=== PATIENT | female | born 1935 | race Caucasian/White ===

== ENCOUNTER → 2018-01-10 | Outpatient (CLI) | payer MEDICARE, OTHER ==
[~2018-01-10] MED LIST: ACET-3017 PO; ALB0.5 IH; ALBU8.5H IH; AMOX-362 PO; APIX2.5T PO; ASPI-1471 PO; AZIT-1 PO; CEFU250T11 PO; CEPH-13 PO; CLON-298 PO; CYCL-277 PO; ERGO500037 PO; ESTR0.62 PO; ESTR1.2525 PO; FLE100 PO; FLEC50TA16 PO; FLU45SYR17 IM; FLU45SYR25 IM ONLY; FLU60SYR30 IM ONLY; FLUT1DIS27 IH; LEVO175T42 PO; LEVO750T44 PO; LOR5/325 PO; OXYC-865 PO; OXYGENHOME INH; PNEU0.5D3 IM; PRED-1 PO; PRED20TA6 PO; SERT-181 PO; TRAZ-156 PO; TRIA1CAP85 PO; [UNRECOGNIZED DRUG - CODE] PO; [UNRECOGNIZED DRUG - CODE] PO
--- NOTE | 2018-01-11 10:45 | RADIOLOGY IMAGING REPORT ---
FACILITY: [facility] - [place] PATIENT NAME: BISI DURAN : [id number] MR: [id number] V: [id number] EXAM DATE: [id number] ORDERING PHYSICIAN: MARGO SINGH TECHNOLOGIST: Jaja Barahona PROCEDURE:BILATERAL DIGITAL SCREENING MAMMOGRAM WITH CAD ASSISTED INTERPRETATION & 3D TOMOSYNTHESIS COMPARISON:Prior mammograms dated 08/30/13, 05/17/12 INDICATIONS:screening FINDINGS: Extremely heterogeneous dense fibroglandular tissue is seen throughout the breasts. Posterior to the mid nipple line on the left CC view as identified on tomographic slice 54 is an area of architectural distortion. This is seen in the left MLO view on tomographic slice 44. Spot compression views recommended for further evaluation. DIAGNOSTIC CATEGORY 0--INCOMPLETE: NEED ADDITIONAL IMAGING EVALUATION. RECOMMENDATIONS: ADDITIONAL MAMMOGRAPHIC VIEWS REQUIRED: LEFT BREAST. IMPRESSION: BIRADS 0: Incomplete, need additional imaging evaluation Additional views of the left breast recommended as described. Dictated by: Eri Aguilar M.D. on 01/10/2018 at 16:16 Transcribed by: EVLIRA on 01/11/2018 at 7:24 Approved by: Eri Aguilar M.D. on 01/11/2018 at 10:44 [facility]
== END ==
LOC: MAMO 01:16
PROVIDERS: ATTEND Internal Medicine
DX: Z12.31 Encounter for screening mammogram for malignant neoplasm of breast (principal); R92.8 Other abnormal and inconclusive findings on diagnostic imaging of breast
CPT/HCPCS: 77063; 77067

== ENCOUNTER → 2018-02-23 | Outpatient (CLI) | payer MEDICARE, OTHER ==
--- NOTE | 2018-02-24 08:41 | RADIOLOGY IMAGING REPORT ---
FACILITY: [facility] - [place] PATIENT NAME: BISI DURAN : [id number] MR: [id number] V: [id number] EXAM DATE: [id number] ORDERING PHYSICIAN: MARGO SINGH TECHNOLOGIST: Sara Black PROCEDURE:US LEFT BREAST COMPLETE COMPARISON:None. INDICATIONS:further eval FINDINGS: In the approximate 11 o'clock position of the Left breast there are 2 adjacent hypoechoic irregular shadowing masses the largest measuring approximately 3 x 1.1 x 1.9cm. The small adjacent nodule measures 8 x 4 x 9mm. Both of these nodules appear worrisome. In the approximate 3 o'clock position of the Left breast there is an irregular hypoechoic nodule measuring 1.1 x 0.6 x 1.2cm. Ultrasound guided core biopsy of these 3 nodules is recommend for further evaluation. DIAGNOSTIC CATEGORY 5--HIGHLY SUGGESTIVE OF MALIGNANCY. RECOMMENDATIONS: ULTRASOUND-GUIDED CORE BIOPSY: LEFT BREAST. IMPRESSION: BIRADS 5: Highly suspicious of malignancy Ultrasound guided core biopsy of the 2 irregular hypoechoic lesions in the 11 o'clock position Left breast and the 1 irregular hypoechoic lesion in the 3 o'clock position Left breast recommend for further evaluation. Dictated by: Eri Aguilar M.D. on 02/23/2018 at 17:01 Transcribed by: RICCARDO on 02/24/2018 at 8:28 Approved by: Eri Aguilar M.D. on 02/24/2018 at 8:40 [facility]
--- NOTE | 2018-02-24 08:41 | RADIOLOGY IMAGING REPORT ---
FACILITY: [facility] PATIENT NAME: BISI DURAN : [id number] MR: [id number] V: [id number] EXAM DATE: ORDERING PHYSICIAN: MARGO SINGH TECHNOLOGIST: Jaja Barahona PROCEDURE:LEFT DIGITAL DIAGNOSTIC MAMMOGRAM WITH CAD ASSISTED INTERPRETATION & 3D TOMOSYNTHESIS COMPARISON:Prior mammograms 01/10/18, 08/30/13, 05/17/12. INDICATIONS:abnormal mammo FINDINGS: Patient returns for a medial lateral view of Left breast and Spot compression views in the Left CC and MLO projection. There is an area of spiculation and architectural distortion seen in the upper outer quadrant of the Left breast. Irregular hypoechoic masses were identified in the 11 and 3 o'clock positions of the Left breast on Today's Left breast Ultrasound. Ultrasound guided core biopsy of these masses recommended as detailed in Today's Left breast Ultrasound report. DIAGNOSTIC CATEGORY 5--HIGHLY SUGGESTIVE OF MALIGNANCY. RECOMMENDATIONS: ULTRASOUND-GUIDED CORE BIOPSY: LEFT BREAST. IMPRESSION: BIRADS 5: Highly suspicious for malignancy. Ultrasound guided core biopsy recommended for the 2 irregular masses in the 11 o'clock position of the Left breast and the irregular 3 o'clock mass as described in Today's Left breast Ultrasound report. Dictated by: Eri Aguilar M.D. on 02/23/2018 at 17:04 Transcribed by: RICCARDO on 02/24/2018 at 8:18 Approved by: Eri Aguilar M.D. on 02/24/2018 at 8:40 [facility]
== END ==
LOC: MAMO 01:01
PROVIDERS: ATTEND Internal Medicine
DX: N63.21 Unspecified lump in the left breast, upper outer quadrant (principal); N63.22 Unspecified lump in the left breast, upper inner quadrant
CPT/HCPCS: 77065

== ENCOUNTER 2018-05-09 12:24 | Emergency (ER) | payer MEDICARE, OTHER ==
--- NOTE | 2018-05-09 12:27 | ER Report ---
History and Physical Time Seen By MD: 12:27 HPI/ROS CHIEF COMPLAINT: Nosebleed HISTORY OF PRESENT ILLNESS: Patient is an 82-year-old female who presents to the emergency department for epistaxis which seems to be coming from the right naris began around 8:30 this morning. She denies any trauma to the nose. She is on Eliquis for treatment of atrial fibrillation. She does not feel as if at this time she is swallowing blood. She has not had a significant nosebleed in the past that she can recall. She denies any other symptoms at this time. She is having no difficulty breathing. REVIEW OF SYSTEMS: Constitutional: No fever, no chills. Eyes: No discharge. ENT: Nosebleed Cardiovascular: No chest pain, no palpitations. Respiratory: No cough, no shortness of breath. Gastrointestinal: No abdominal pain, no vomiting. Genitourinary: No hematuria. Musculoskeletal: No back pain. Skin: No rashes. Neurological: No headache. Allergies: Coded Allergies: No Known Drug Allergies (Unverified , 02/10/17) Home Meds Active Scripts Sertraline Hcl (SERTRALINE HCL) 100 Mg Tablet, 1.5 TAB PO QDAY, #135 TAB 3 Refills Prov:MARGO SINGH MD 03/27/18 Apixaban (ELIQUIS) 2.5 Mg Tablet, 1 TAB PO BID, #60 TAB 11 Refills Prov:MARGO SINGH MD 10/05/17 Levothyroxine Sodium (LEVOTHYROXINE SODIUM) 175 Mcg Tablet, 1 TAB PO QDAY, #90 TAB 3 Refills Prov:MARGO SINGH MD 10/03/17 Trazodone Hcl (TRAZODONE HCL) 50 Mg Tablet, 0.5 TAB PO HS, #30 TAB 1 Refill Prov:MARGO SINGH MD 10/03/17 Clonazepam (CLONAZEPAM) 0.5 Mg Tablet, 1 TAB PO HS Y for anxiety, #30 TAB 1 Refill Prov:MARGO SINGH MD 08/23/17 Fluticasone/Salmeterol (ADVAIR 100-50 DISKUS) 1 Each Disk.w.dev, 1 TAB IH BID, # 1 INHALER 3 Refills Prov:MARGO SINGH MD 08/16/17 Albuterol Sulfate 90 Mcg/Act (PROAIR HFA 90 MCG/ACT) 8.5 Gm Hfa.aer.ad, 2 PUFF IH QID Y for PRN, #1 INHALER 0 Refills Prov:JAYDA JOSHUA APRN INTERIOR PAINTER-C 08/10/17 Ergocalciferol (Vitamin D2) (VITAMIN D2) 50,000 Unit Capsule, 1 CAP PO QWEEK, # 20 CAPSULE 2 Refills Prov:MARGO SINGH MD 06/03/17 Flecainide Acetate (FLECAINIDE ACETATE) 100 Mg Tab, 1 TAB PO BID, #180 TAB 4 Refills Prov:MARGO SINGH MD 04/26/17 Triamterene/Hydrochlorothiazid (TRIAMTERENE-HCTZ 37.5-25 MG CP) 1 Each Capsule, 1 CAP PO DAILY, #90 CAPSULE Prov:MARGO SINGH MD 03/17/17 Digoxin (Digox) 250 Mcg Tablet, 1 TAB PO DAILY, #90 TAB 3 Refills Prov:MARGO SINGH MD 12/21/16 Reported Medications Oxygen (OXYGEN) Inha, 2 L INH cont, L 04/11/17 Past Medical/Surgical History Past medical history for abdominal aortic aneurysm, atrial fibrillation on Eliquis, hyperlipidemia, history of asthma COPD and pulmonary hypertension, history of GERD, history of hypothyroidism, history of sinus surgery in 1992 with tonsillectomy, history of cholecystectomy and hysterectomy Hx Smoking: No Smoking Status: Never Smoker Exposure to Second Hand Smoke?: Yes Hx Substance Use Disorder: No Hx Alcohol Use: No Constitutional Vital Sign - Last 24 Hours 05/09/18 05/09/18 05/09/18 05/09/18 12:29 12:30 12:31 12:34 Temp 98.0 Pulse ??? 59 ??? Resp 18 B/P (MAP) 118/87 (97) 118/87 Pulse Ox 89 88 O2 Delivery Room Air 05/09/18 05/09/18 05/09/18 05/09/18 12:39 12:44 12:49 12:54 Pulse 56 54 54 54 B/P (MAP) 144/59 (87) Pulse Ox 85 95 95 96 05/09/18 05/09/18 05/09/18 05/09/18 12:59 13:00 13:04 13:09 Pulse 53 51 52 B/P (MAP) 139/65 (89) Pulse Ox 95 95 95 05/09/18 13:14 Pulse ??? Pulse Ox 82 Physical Exam General Appearance: Alert, no distress. Eyes: [Pupils equal and round no pallor or injection.] ENT, Mouth: Ears: Tympanic membranes are normal. Nose: She has slow ooze of blood from the right naris. Mouth: Mucous membranes are moist. Throat: No erythema or exudates there is no tonsillar hypertrophy and uvula is midline. Musculoskeletal: Neck is supple non tender, no adenopathy. Skin: Warm and dry, no rashes. Medical Decision Making Data Points Result Diagram: 05/09/18 1320 05/09/18 1320 Laboratory Hematology Test 05/09/18 13:20 Red Blood Count 4.42 M/uL (4.17-5.56) Mean Corpuscular Volume 85.4 fL (80.0-96.0) Mean Corpuscular Hemoglobin 29.2 pg (26.0-33.0) Mean Corpuscular Hemoglobin Concent 34.2 g/dL (32.0-36.0) Red Cell Distribution Width 14.7 % (11.5-14.5) Mean Platelet Volume 7.3 fL (7.2-11.1) Neutrophils (%) (Auto) 70.8 % (39.4-72.5) Lymphocytes (%) (Auto) 21.8 % (17.6-49.6) Monocytes (%) (Auto) 5.0 % (4.1-12.4) Eosinophils (%) (Auto) 1.6 % (0.4-6.7) Basophils (%) (Auto) 0.8 % (0.3-1.4) Nucleated RBC Relative Count (auto) 0.0 /100WBC Neutrophils # (Auto) 4.7 K/uL (2.0-7.4) Lymphocytes # (Auto) 1.4 K/uL (1.3-3.6) Monocytes # (Auto) 0.3 K/uL (0.3-1.0) Eosinophils # (Auto) 0.1 K/uL (0.0-0.5) Basophils # (Auto) 0.0 K/uL (0.0-0.1) Nucleated RBC Absolute Count (auto) 0.00 K/uL Prothrombin Time 13.8 seconds (12.0-14.4) Prothromb Time International Ratio 1.05 Activated Partial Thromboplast Time 29 seconds (23-35) Sodium Level 136 mmol/L (137-145) Potassium Level 3.7 mmol/L (3.5-5.0) Chloride Level 96 mmol/L (98-107) Carbon Dioxide Level 30 mmol/L (22-31) Blood Urea Nitrogen 12 mg/dl (7-18) Creatinine 0.80 mg/dl (0.52-1.04) Glomerular Filtration Rate Calc > 60.0 Random Glucose 105 mg/dl (75-110) Calcium Level 8.7 mg/dl (8.4-10.2) Total Bilirubin 1.0 mg/dl (0.2-1.3) Aspartate Amino Transf (AST/SGOT) 26 U/L (0-35) Alanine Aminotransferase (ALT/SGPT) 24 U/L (0-56) Alkaline Phosphatase 71 U/L (0-126) Total Protein 6.7 g/dl (6.3-8.2) Albumin 3.7 g/dl (3.5-5.0) Chemistry Test 05/09/18 13:20 White Blood Count 6.6 k/uL (4.5-11.0) Red Blood Count 4.42 M/uL (4.17-5.56) Hemoglobin 12.9 g/dL (12.0-16.0) Hematocrit 37.7 % (34.0-47.0) Mean Corpuscular Volume 85.4 fL (80.0-96.0) Mean Corpuscular Hemoglobin 29.2 pg (26.0-33.0) Mean Corpuscular Hemoglobin Concent 34.2 g/dL (32.0-36.0) Red Cell Distribution Width 14.7 % (11.5-14.5) Platelet Count 179 K/uL (150-450) Mean Platelet Volume 7.3 fL (7.2-11.1) Neutrophils (%) (Auto) 70.8 % (39.4-72.5) Lymphocytes (%) (Auto) 21.8 % (17.6-49.6) Monocytes (%) (Auto) 5.0 % (4.1-12.4) Eosinophils (%) (Auto) 1.6 % (0.4-6.7) Basophils (%) (Auto) 0.8 % (0.3-1.4) Nucleated RBC Relative Count (auto) 0.0 /100WBC Neutrophils # (Auto) 4.7 K/uL (2.0-7.4) Lymphocytes # (Auto) 1.4 K/uL (1.3-3.6) Monocytes # (Auto) 0.3 K/uL (0.3-1.0) Eosinophils # (Auto) 0.1 K/uL (0.0-0.5) Basophils # (Auto) 0.0 K/uL (0.0-0.1) Nucleated RBC Absolute Count (auto) 0.00 K/uL Prothrombin Time 13.8 seconds (12.0-14.4) Prothromb Time International Ratio 1.05 Activated Partial Thromboplast Time 29 seconds (23-35) Glomerular Filtration Rate Calc > 60.0 Calcium Level 8.7 mg/dl (8.4-10.2) Total Bilirubin 1.0 mg/dl (0.2-1.3) Aspartate Amino Transf (AST/SGOT) 26 U/L (0-35) Alanine Aminotransferase (ALT/SGPT) 24 U/L (0-56) Alkaline Phosphatase 71 U/L (0-126) Total Protein 6.7 g/dl (6.3-8.2) Albumin 3.7 g/dl (3.5-5.0) Coagulation Test 05/09/18 13:20 Prothrombin Time 13.8 seconds Prothromb Time International Ratio 1.05 Activated Partial Thromboplast Time 29 seconds ED Course/Re-evaluation ED Course 05/09/2018 12:39:04 pm had the patient blow her nose subsequently instilled Yakov -Synephrine nasal spray to both nostrils. We then struck a Yakov-Synephrine- soaked pledget into the right naris. Patient is holding direct pressure at this time. Re-evaluation Patient observed in the emergency department for approximate one hour status post packing no rebleeding. We'll discharge home Decision to Disposition Date: May 09, 2018 Decision to Disposition Time: 13:39 Depart Departure Latest Vital Signs Vital Signs Date Time Temp Pulse Resp B/P (MAP) Pulse Ox O2 Delivery O2 Flow Rate FiO2 05/09/18 13:14 ??? 82 05/09/18 13:00 139/65 (89) 05/09/18 12:31 98.0 18 Room Air Impression: Primary Impression: Nosebleed Condition: Improved Disposition: HOME OR SELF-CARE Referrals: MARGO SINGH MD (PCP) 2 Days if symptoms persist Departure Forms: ER Transition Record, Medications Reconciliation, Patient Portal Information Patient Instructions: Nosebleed (ED) RENETTA ROTHMAN MD May 09, 2018 12:27
[2018-05-09] MEDS ORDERED: ENT KIT ONE (12:34)
[2018-05-09 13:30] VITALS: BP 131/58
[2018-05-09 13:32] LABS: PLATELET COUNT, AUTOMATED 179 K/uL (150-450)
[2018-05-09 13:38] LABS: INR 1.05
[2018-05-09] MEDS ORDERED: PHENYLEPHRINE 0.5% 15 ML BTL ONE (13:50)
== END 2018-05-09 13:45 | disposition home or self-care (01) ==
LOC: ER 12:32
DX: R04.0 Epistaxis (principal); Z79.01 Long term (current) use of anticoagulants
CPT/HCPCS: 36415; 82040; 82247; 82310; 82374; 82435; 82565; 82947; 84075; 84132; 84155; 84295; 84450; 84460; 84520; 85025; 85610; 85730; 99282

== ENCOUNTER 2018-07-10 20:53 | Emergency (ER) | payer MEDICARE, OTHER ==
[~2018-07-10 20:53] MED LIST changes: -CLON-298 PO; +CLON-331 PO; -TRAZ-156 PO; +TRAZ50TA34 PO
--- NOTE | 2018-07-10 21:30 | ER Report ---
History and Physical Time Seen By MD: 21:30 Hx. of Stated Complaint: PT HAS HX OF PNEUMONIA AND IS WORRIED ABOUT HAVING IT AGAIN. HPI/ROS CHIEF COMPLAINT: trouble breathing and cough HISTORY OF PRESENT ILLNESS: This is an 83 year old female. She has had a cough for a few days and is coughing up some increased sputum. She is having some tightness in the chest as well. Having intermittent fevers/chills with this. She has COPD and wears 2 liters of oxygen, and felt like this might not be helping as much the last few days. Denies rashes or skin changes. Is worried that she might have pneumonia as it feels like when she has had this in the past. Allergies: Coded Allergies: No Known Drug Allergies (Unverified , 07/10/18) Home Meds Active Scripts Guaifenesin/Codeine (GUAIFENESIN-CODEINE SYRUP) 5 Ml Syrp, 5 ML PO Q6H PRN for COUGH, #120 ML 0 Refills Prov:ENEDINA HILL MD 07/10/18 Azithromycin (ZITHROMAX) 250 Mg Tablet, 2 TAB PO ONCE, #6 TAB 0 Refills Prov:ENEDINA HILL MD 07/10/18 Prednisone (PREDNISONE) 20 Mg Tablet, 40 MG PO QDAY, #10 TAB 0 Refills Prov:ENEDINA HILL MD 07/10/18 Sertraline Hcl (SERTRALINE HCL) 100 Mg Tablet, 1.5 TAB PO QDAY, #135 TAB 3 Refills Prov:MARGO SINGH MD 03/27/18 Apixaban (ELIQUIS) 2.5 Mg Tablet, 1 TAB PO BID, #60 TAB 11 Refills Prov:MARGO SINGH MD 10/05/17 Levothyroxine Sodium (LEVOTHYROXINE SODIUM) 175 Mcg Tablet, 1 TAB PO QDAY, #90 TAB 3 Refills Prov:MARGO SINGH MD 10/03/17 Trazodone Hcl (TRAZODONE HCL) 50 Mg Tablet, 0.5 TAB PO HS, #30 TAB 1 Refill Prov:MARGO SINGH MD 10/03/17 Clonazepam (CLONAZEPAM) 0.5 Mg Tablet, 1 TAB PO HS PRN for anxiety, #30 TAB 1 Re fill Prov:MARGO SINGH MD 08/23/17 Fluticasone/Salmeterol (ADVAIR 100-50 DISKUS) 1 Each Disk.w.dev, 1 TAB IH BID, #1 INHALER 3 Refills Prov:MARGO SINGH MD 08/16/17 Albuterol Sulfate 90 Mcg/Act (PROAIR HFA 90 MCG/ACT) 8.5 Gm Hfa.aer.ad, 2 PUFF IH QID PRN for PRN, #1 INHALER 0 Refills Prov:JAYDA JOSHUA APRN [employer]T [employer]ER-C 08/10/17 Ergocalciferol (Vitamin D2) (VITAMIN D2) 50,000 Unit Capsule, 1 CAP PO QWEEK, #20 CAPSULE 2 Refills Prov:MARGO SINGH MD 06/03/17 Flecainide Acetate (FLECAINIDE ACETATE) 100 Mg Tab, 1 TAB PO BID, #180 TAB 4 Refills Prov:MARGO SINGH MD 04/26/17 Triamterene/Hydrochlorothiazid (TRIAMTERENE-HCTZ 37.5-25 MG CP) 1 Each Capsule, 1 CAP PO DAILY, #90 CAPSULE Prov:MARGO SINGH MD 03/17/17 Digoxin (Digox) 250 Mcg Tablet, 1 TAB PO DAILY, #90 TAB 3 Refills Prov:MARGO SINGH MD 12/21/16 Reported Medications Oxygen (OXYGEN) Inha, 2 L INH cont, L 04/11/17 Reviewed Nurses Notes: Yes Hx Smoking: No Smoking Status: Never Smoker Exposure to Second Hand Smoke?: Yes Hx Substance Use Disorder: No Hx Alcohol Use: No Constitutional Vital Sign - Last 24 Hours 07/10/18 07/10/18 07/10/18 07/10/18 21:02 21:20 21:23 21:30 Temp 100.1 Pulse 65 63 B/P (MAP) 137/74 160/75 (103) 166/77 (106) Pulse Ox 85 95 O2 Delivery Room Air 07/10/18 07/10/18 07/10/18 07/10/18 21:38 21:53 21:57 21:58 Pulse 64 64 67 Pulse Ox 95 96 95 O2 Flow Rate 4.0 07/10/18 07/10/18 07/10/18 07/10/18 22:00 22:28 22:30 22:43 Pulse 64 64 B/P (MAP) 172/86 (114) 174/82 (112) Pulse Ox 95 95 07/10/18 07/10/18 07/10/18 07/10/18 22:48 23:00 23:03 23:18 Pulse 59 60 59 B/P (MAP) 177/77 (110) Pulse Ox 95 96 97 07/10/18 07/10/18 23:30 23:33 Pulse 59 B/P (MAP) 168/67 (100) Pulse Ox 96 Physical Exam General Appearance: The patient is alert. No acute distress. Non-toxic in appearance. Eyes: Pupils are equal, round. No pallor, injection or icterus. ENT: Mucous membranes are moist. Normal oral mucosa. Posterior oropharynx is normal. Neck: Supple and non tender. Respiratory: Lungs have rhonchi and wheezing which is mild, but no rhonchi. Cardiovascular: Regular rate and rhythm. No murmurs, gallops or rubs. Normal capillary refill. Gastrointestinal: Abdomen is soft and non tender. Nondistended. Normal active bowel sounds. Neurological: Alert and oriented x3. Skin: Warm and dry. No rashes. Musculoskeletal: No tenderness in palpation of the cervical, thoracic and lumbar spine. DIFFERENTIAL DIAGNOSIS: After history and physical exam, differential diagnosis was considered for ED shortness breath differential Medical Decision Making Data Points Result Diagram: 07/10/18220407/10/182204 Laboratory Hematology Test 07/10/18 22:05 Red Blood Count 4.81 M/uL (4.17-5.56) Mean Corpuscular Volume 85.6 fL (80.0-96.0) Mean Corpuscular Hemoglobin 29.3 pg (26.0-33.0) Mean Corpuscular Hemoglobin Concent 34.3 g/dL (32.0-36.0) Red Cell Distribution Width 15.5 % (11.5-14.5) Mean Platelet Volume 7.5 fL (7.2-11.1) Neutrophils (%) (Auto) 82.3 % (39.4-72.5) Lymphocytes (%) (Auto) 11.7 % (17.6-49.6) Monocytes (%) (Auto) 4.3 % (4.1-12.4) Eosinophils (%) (Auto) 1.1 % (0.4-6.7) Basophils (%) (Auto) 0.6 % (0.3-1.4) Nucleated RBC Relative Count (auto) 0.0 /100WBC Neutrophils # (Auto) 6.8 K/uL (2.0-7.4) Lymphocytes # (Auto) 1.0 K/uL (1.3-3.6) Monocytes # (Auto) 0.4 K/uL (0.3-1.0) Eosinophils # (Auto) 0.1 K/uL (0.0-0.5) Basophils # (Auto) 0.1 K/uL (0.0-0.1) Nucleated RBC Absolute Count (auto) 0.00 K/uL Sodium Level 136 mmol/L (137-145) Potassium Level 3.7 mmol/L (3.5-5.0) Chloride Level 96 mmol/L (98-107) Carbon Dioxide Level 31 mmol/L (22-31) Blood Urea Nitrogen 14 mg/dl (7-18) Creatinine 1.00 mg/dl (0.52-1.04) Glomerular Filtration Rate Calc 52.8 Random Glucose 138 mg/dl (75-110) Calcium Level 9.2 mg/dl (8.4-10.2) Total Bilirubin 1.4 mg/dl (0.2-1.3) Aspartate Amino Transf (AST/SGOT) 26 U/L (0-35) Alanine Aminotransferase (ALT/SGPT) 27 U/L (0-56) Alkaline Phosphatase 53 U/L (0-126) Total Protein 7.7 g/dl (6.3-8.2) Albumin 4.5 g/dl (3.5-5.0) Chemistry Test 07/10/18 22:05 White Blood Count 8.3 k/uL (4.5-11.0) Red Blood Count 4.81 M/uL (4.17-5.56) Hemoglobin 14.1 g/dL (12.0-16.0) Hematocrit 41.2 % (34.0-47.0) Mean Corpuscular Volume 85.6 fL (80.0-96.0) Mean Corpuscular Hemoglobin 29.3 pg (26.0-33.0) Mean Corpuscular Hemoglobin Concent 34.3 g/dL (32.0-36.0) Red Cell Distribution Width 15.5 % (11.5-14.5) Platelet Count 190 K/uL (150-450) Mean Platelet Volume 7.5 fL (7.2-11.1) Neutrophils (%) (Auto) 82.3 % (39.4-72.5) Lymphocytes (%) (Auto) 11.7 % (17.6-49.6) Monocytes (%) (Auto) 4.3 % (4.1-12.4) Eosinophils (%) (Auto) 1.1 % (0.4-6.7) Basophils (%) (Auto) 0.6 % (0.3-1.4) Nucleated RBC Relative Count (auto) 0.0 /100WBC Neutrophils # (Auto) 6.8 K/uL (2.0-7.4) Lymphocytes # (Auto) 1.0 K/uL (1.3-3.6) Monocytes # (Auto) 0.4 K/uL (0.3-1.0) Eosinophils # (Auto) 0.1 K/uL (0.0-0.5) Basophils # (Auto) 0.1 K/uL (0.0-0.1) Nucleated RBC Absolute Count (auto) 0.00 K/uL Glomerular Filtration Rate Calc 52.8 Calcium Level 9.2 mg/dl (8.4-10.2) Total Bilirubin 1.4 mg/dl (0.2-1.3) Aspartate Amino Transf (AST/SGOT) 26 U/L (0-35) Alanine Aminotransferase (ALT/SGPT) 27 U/L (0-56) Alkaline Phosphatase 53 U/L (0-126) Total Protein 7.7 g/dl (6.3-8.2) Albumin 4.5 g/dl (3.5-5.0) EKG/Imaging Imaging 2 VIEWS CHEST INDICATION: Cough. Fever. COMPARISON: 05/18/2017 FINDINGS: The lungs are clear. No effusion or pneumothorax is seen. The heart size is mildly enlarged. There are prominent central pulmonary arteries and this appearance is stable. Degenerative changes involve the thoracic spine. IMPRESSION: 1. No radiographic evidence of active disease. 2. Mild cardiac enlargement. Report Dictated By: Eduard Dominguez at 07/10/2018 10:45 PM ED Course/Re-evaluation Clinical Indication for ER IV: IV Access ED Course COPD with bronchitis, increased mucus production. Prednisone, azithromycin, and cough medicine Decision to Disposition Date: Jul 10, 2018 Decision to Disposition Time: 23:39 Depart Departure Latest Vital Signs Vital Signs Date Time Temp Pulse Resp B/P (MAP) Pulse Ox O2 Delivery O2 Flow Rate FiO2 07/10/18 23:33 59 96 07/10/18 23:30 168/67 (100) 07/10/18 21:57 4.0 07/10/18 21:02 100.1 Room Air Impression: Primary Impression: Acute bronchitis Additional Impression: COPD (chronic obstructive pulmonary disease) Condition: Improved Disposition: HOME OR SELF-CARE Referrals: MARGO SINGH MD (PCP) New Scripts Guaifenesin/Codeine (GUAIFENESIN-CODEINE SYRUP) 5 Ml Syrp 5 ML PO Q6H PRN for COUGH, #120 ML 0 Refills Prov: ENEDINA HILL MD 07/10/18 Azithromycin (ZITHROMAX) 250 Mg Tablet 2 TAB PO ONCE, #6 TAB 0 Refills Prov: ENEDINA HILL MD 07/10/18 Prednisone (PREDNISONE) 20 Mg Tablet 40 MG PO QDAY, #10 TAB 0 Refills Prov: ENEDINA HILL MD 07/10/18 Patient Instructions: Acute Bronchitis (ED) Additional Instructions: Take Azithromycin 250mg, take 2 tablets once a day for 3 days. Take Prednisone 20mg, 2 tablets once a day for 5 days. Take Guaifenesin with codeine, 1 teaspoon every 4 hours as needed for severe cough. Problem Qualifiers Primary Impression: Acute bronchitis Bronchitis organism: unspecified organism Qualified Codes: J20.9 - Acute bronchitis, unspecified Additional Impression: COPD (chronic obstructive pulmonary disease) COPD type: COPD with acute lower respiratory infection Qualified Codes: J44.0 - Chronic obstructive pulmonary disease with acute lower respiratory infection ENEDINA HILL MD Jul 10, 2018 21:30
[2018-07-10 22:15] LABS: PLATELET COUNT, AUTOMATED 190 K/uL (150-450)
--- NOTE | 2018-07-10 22:51 | RADIOLOGY IMAGING REPORT ---
FACILITY: [facility] - [place] PATIENT NAME: Alise Scott : 1935 MR: [id number] V: [id number] EXAM DATE: ORDERING PHYSICIAN: ENEDINA HILL TECHNOLOGIST: Location: [facility] - [place] Patient: Alise Scott : 1935 Visit/Account:[id number] Date of Sevice: 07/10/2018 2 VIEWS CHEST INDICATION: Cough. Fever. COMPARISON: 05/18/2017 FINDINGS: The lungs are clear. No effusion or pneumothorax is seen. The heart size is mildly enlarged. There ar e prominent central pulmonary arteries and this appearance is stable. Degenerative changes involve th e thoracic spine. IMPRESSION: 1. No radiographic evidence of active disease. 2. Mild cardiac enlargement. Report Dictated By: Eduard Dominguez at 07/10/2018 10:45 PM Report E-Signed By: Eduard Dominguez at 07/10/2018 10:48 PM WSN:[id number]
[2018-07-10 23:30] VITALS: BP 168/67
[2018-07-10] MEDS ORDERED: ROBC PO (23:40)
[2018-07-10] MEDS ORDERED: AZIT-1 PO (23:40)
[2018-07-10] MEDS ORDERED: PRED20TA6 PO (23:40)
[2018-07-10] MEDS ORDERED: guaiFENesin/CODEINE 5 ML UDBTL PO ONE (23:40)
[2018-07-10] MEDS ORDERED: AZITHROMYCIN 250 MG TAB PO ONE (23:40)
[2018-07-10] MEDS ORDERED: predniSONE 20 MG TAB PO ONE (23:45)
== END 2018-07-11 00:20 | disposition home or self-care (01) ==
LOC: ER 21:31
DX: J20.9 Acute bronchitis, unspecified (principal); J44.0 Chronic obstructive pulmonary disease with (acute) lower respiratory infection
CPT/HCPCS: 36415; 71046; 85025; 87040; 99283; A9270; J7512; Q0144; 82040; 82247; 82310; 82374; 82435; 82565; 82947; 84075; 84132; 84155; 84295; 84450; 84460; 84520

== ENCOUNTER → 2019-06-04 | Outpatient (CLI) | payer MEDICARE, OTHER ==
[~2019-06-04] MED LIST changes: +ROBC PO; -TRAZ50TA34 PO; +TRAZ50TA52 PO
[2019-06-04 15:30] LABS: PLATELET COUNT, AUTOMATED 203 K/uL (150-450)
== END ==
LOC: LAB 15:05
PROVIDERS: ATTEND Internal Medicine
DX: N63.20 Unspecified lump in the left breast, unspecified quadrant (principal); J45.909 Unspecified asthma, uncomplicated; I48.91 Unspecified atrial fibrillation; E03.9 Hypothyroidism, unspecified; I10 Essential (primary) hypertension; E55.9 Vitamin D deficiency, unspecified
CPT/HCPCS: 36415; 80162; 82040; 82247; 82306; 82310; 82374; 82435; 82565; 82607; 82746; 82947; 84075; 84132; 84155; 84295; 84450; 84460; 84520; 85025

== ENCOUNTER → 2019-06-05 | Outpatient (CLI) | payer MEDICARE, OTHER ==
--- NOTE | 2019-06-06 09:53 | RADIOLOGY IMAGING REPORT ---
FACILITY: [facility] [place] PATIENT NAME: BISI DURAN : [id number] MR: [id number] V: [id number] EXAM DATE: [id number] ORDERING PHYSICIAN: MELLISA MENDOZA TECHNOLOGIST: Patricia Stone PROCEDURE:BILATERAL DIAGNOSTIC DIGITAL MAMMOGRAM WITH CAD ASSISTED INTERPRETATION & 3D TOMOSYNTHESIS LEFT BREAST ULTRASOUND. REASON FOR STUDY: Previous history of architectural distortion and mass in the Left breast with biopsy recommended. The patient did not have biopsy at that time. Follow-up. COMPARISON STUDIES: 02/23/18 with priors back to 08/30/13. MAMMOGRAM VIEWS OBTAINED: 2D & 3D full field CC & MLO projections. BREAST DENSITY: The breast parenchyma is heterogeneously dense. MAMMOGRAM FINDINGS: There is a persistent area of architectural distortion in the 12 o'clock position of the Left breast without substantial progression from previous. There is no defined soft tissue mass associated with this. No suspect calcifications. No discreet finding of concern elsewhere in the Left breast or on the Right. There are benign appearing calcifications. No visible axillary adenopathy. ULTRASOUND AREA SCANNED: Left breast. ULTRASOUND FINDINGS: The Ultrasound re-demonstrates a lobulated just under 2cm hypoechoic mass in the upper inner aspect of the breast in the 10-11 o'clock area about 2cm from the nipple which I think correlates with the dominant mass shown previously and has not grown substantially. I'm not convinced that this correlates precisely with the location of the architectural distortion. The patient does have some firm appearing tissue more in the 12-1 o'clock area which I think probably correlates with the architectural distortion however sonography does not really show a discreet concerning mass here. There are some other scattered small hypoechoic islands or cysts elsewhere in the breast including a small ovoid focus in the 3 o'clock position of the breast. No other dominant concerning structure. No axillary adenopathy demonstrated sonographically. I discussed exam findings with the patient at the completion of my scanning. Biopsy of the architectural distortion is warranted. Also, the solid mass in the upper inner aspect warrants assessment. Sense these are not clearly the same site, this maybe a 2 side biopsy. I would recommend Stereotacticly guided biopsy with Tomosynthesis for the architectural distortion in the superior aspect of the breast. After that, limited Ultrasound could be done to determine if the biopsy changes and clip correlate with the sonographic mass. If not, as I would expect, Ultrasound guided biopsy of the upper inner quadrant mass could then be done. The patient is interested in having these finding accessed in the [facility] area, and I did discuss with her that the Tomography with Tomosynthesis had to [facility] in [place] would be best for the Stereotactic biopsy rather than the unit here at [facility] [place]. I have also called the nurse line for Dr. Mendoza and left a message regarding the biopsy recommendation at about 3:20pm. DIAGNOSTIC CATEGORY 5--HIGHLY SUGGESTIVE OF MALIGNANCY. RECOMMENDATIONS: STEREOTACTIC BREAST BIOPSY: LEFT BREAST. ULTRASOUND-GUIDED CORE BIOPSY: LEFT BREAST. IMPRESSION: BIRADS 5: Highly suggestive of malignancy. Dictated by: Saeid Gómez on 06/05/2019 at 15:27 Transcribed by: RICCARDO on 06/06/2019 at 9:07 Approved by: Eri Aguilar M.D. on 06/06/2019 at 9:48 [facility]
== END ==
LOC: MAMO 05-16 01:04
PROVIDERS: ATTEND Internal Medicine
DX: R92.8 Other abnormal and inconclusive findings on diagnostic imaging of breast (principal)
CPT/HCPCS: 77062; 77066